=== PATIENT | female | born 2000 | race African-American/Black ===

== ENCOUNTER 2025-03-22 15:19 | Emergency (ER) | payer SELFPAY ==
[2025-03-22 15:20] VITALS: BP 124/75; BMI 33.2
--- NOTE | 2025-03-22 18:24 | ED.GENMED ---
History of Present Illness
General
Chief Complaint: Crisis Evaluation
Source: patient
Exam Limitations: none
Time Seen by Provider: 03/22/25 15:24
Nursing documentation reviewed up to this point in time: agreed with
History of Present Illness
History of Present Illness:
Patient is a 24-year-old female with history of anxiety, depression, schizoaffective disorder who presents to the emergency department for crisis evaluation. Patient states that she has been staying at [facility] and expressed
suicidal ideations and was sent to the emergency department. Patient reports frequent suicidal thoughts over the past 2 months. She has plans to either 'cut her neck with a razor' or hang herself.
She denies any homicidal ideations. She states that she frequently experiences auditory hallucinations telling her to kill herself.
She has no past suicidal attempts however does have a past history of self-harm.
Patient states she does have a past history of alcohol abuse however has not had a drink in a few months. She does occasionally use marijuana recreationally.
Review of Systems
Review of Systems
Allergies reviewed?: Yes
All Other Systems: ROS reviewed and negative except as documented in HPI and ROS
Phy Exam
Physical Exam
Physical Exam:
Vitals: Patient's vital signs are stable. Afebrile
General: Patient is well appearing, no acute distress
Skin: Warm and dry, no rashes or lesions
Head: Normocephalic, atraumatic
Throat: Protecting airway
Neck: Normal ROM, no cervical spine tenderness
Cardiac: Regular rate
Pulm: No apparent respiratory distress
Abdomen: Nondistended
Extremities: No evidence of cyanosis or edema
Neuro: Grossly intact
Psychiatric: Normal affect. Positive SI. No HI. Not responding to any internal stimuli on exam.
Course
Orders/Labs/Results
Orders:
Orders
03/22/25 15:30
1:1 Observation - Suicide/ Violent Behavior As Directed
Crisis Consult Urgent
Reason for Consult: active SI
03/22/25 15:45
Urine Drug Abuse Screen Urgent
Date Specimen was Collected: 03/22/25
Time Specimen was Collected: 15:43
03/22/25 22:19
Julianne/Yeast Culture Urgent
[facility] Source: Urine
Specimen Description:
Date Specimen was Collected: 03/22/25
Time Specimen was Collected: 22:18
03/22/25 22:20
Chlamydia/GC by PCR Urgent
[facility] Source: Urine
Specimen Description:
Source:: URINE
Date Specimen was Collected: 03/22/25
Time Specimen was Collected: 22:18
Vital Signs
Initial and Last Documented VS:
Initial Vital Signs
Temp Pulse Resp BP Pulse Ox
98.9 F 109 20 124/75 100
03/22/25 15:20 03/22/25 15:20 03/22/25 15:20 03/22/25 15:20 03/22/25 15:20
Last Documented Vital Signs
Temp Pulse Resp BP Pulse Ox
98.9 F 95 16 130/88 98
03/22/25 15:20 03/22/25 23:06 03/22/25 23:06 03/22/25 23:06 03/22/25 23:06
MDM/Problems Addressed
Differential Diagnosis Includes:
Not limited to: Depression, anxiety, acute psychosis, suicidal ideations, etc.
MDM/Problems Addressed:
24-year-old female with lengthy history mental health disorders and inpatient psychiatric tx presents with suicidal ideation. Currently living in a residential treatment facility however describes a few months of worsening SI. She has plans to cut
her throat with razor or hang herself. Also experiencing frequent auditory hallucinations. No HI.
Vitals stable. Physical exam as above. Patient cooperative with exam. No evidence of self harm.
Patient reports active suicidal thoughts with plan. No evidence of self harm.
She meets criteria for inpatient psychiatric treatment.
Discussed with patient who is agreeable with plan for inpatient treatment. She will go in under [facility].
Patient evaluated by crisis who agrees with assessment. They did contact her current residential treatment facility and unfortunately, they are unable to provide one on one care or direct supervision of patient and are unable to accommodate her with
current suicidality.
Disposition pending inpatient bed search by crisis.
Chronic conditions affecting care:
Anxiety, depression, schizoaffective disorder
Acute Exacerbation and/or Progression of Chronic Illness:
N/A
*Pulse Oximetry
SaO2: 100
Oxygen Mode of Delivery: Room air
Patient hypoxic: no
*EKG
Interpreted by ED Provider?: NA
*Wool Merchant Interpretation
Rate: Wool Merchant- N/A
*Critical Care Note
Total Time (30-74mins, 75-104mins- exclusive of procedures): Not Applicable
ED Attending Note
-
Portions of this chart may have been created with voice recognition software.� Occasional wrong word or��sound alike� substitutions may have occurred due to the inherent limitations of voice recognition software.
Discharge Plan
Departure
Patient Disposition: Psych Facility
Date of Disposition: 03/22/25
Time of Disposition: 16:25
Discharge Problem:
Suicidal ideation
Interventions
Interventions:
*Risk Screen - Suicide Last Done: 03/22/25 15:20
*General Assessment Last Done: 03/22/25 15:20
*Neglect/Abuse Screening Last Done: 03/22/25 15:20
*ED- Fall Risk Assessment Last Done: 03/22/25 15:20
*ED COVID-19 Vaccine History Last Done: 03/22/25 15:20
*ED Influenza Vaccine History Last Done: 03/22/25 15:20
ED-Psychological Assessment Last Done: 03/22/25 15:20
Discharge Date and Time
Print Language: PAKISTANI
[2025-03-22 23:06] VITALS: BP 130/88
== END 2025-03-23 00:11 ==
LOC: EMR 15:19
PROVIDERS: Physician Assistant; EMERGENCY PHYSICIAN Emergency Medicine
DX: R45.851 Suicidal ideations (principal); F25.9 Schizoaffective disorder, unspecified; F41.9 Anxiety disorder, unspecified; F32.A Depression, unspecified; F12.90 Cannabis use, unspecified, uncomplicated; Z91.52 Personal history of nonsuicidal self-harm
CPT/HCPCS: 99285; 80306; 87102; 87491; 87591